=== PATIENT | male | born 1955 | race Caucasian/White ===

== ENCOUNTER 2022-12-30 10:30 | Emergency (ER) | payer MEDICARE, SELFPAY ==
[2022-12-30 10:46] VITALS: BP 149/108; PULSE 78; RESP 18; TEMP 36.8; O2SAT 93; BMI 37.2
--- NOTE | 2022-12-30 11:02 | ED_ITS ---
HPI - Animal Bite General: Chief Complaint: Animal Bite Stated Complaint: multi wasp sting Time Seen by Provider: 12/30/22 11:02 History of Present Illness: Mr. Thacker is a 67-year-old gentleman with history of hypertension, hyperlipidemia, obesity presenting the emergency department for multiple wasp or yellowjacket stings. He reports that he was doing yard work when all of a sudd en he was swarmed. He has numerous bites all over his back stomach and arms. He tried to run away and felt quite lightheaded. Currently feels mildly improved but still not normal. Denies GI symptoms, shortness of breath, throat tightness. Denies known history of allergy to insect bite. No other specific changes in health, exacerbating, or alleviating factors identified. Onset (ago): minute(s) Animal: other Mechanism: bite Pain description: burning Associated symptoms: Reports other Review of Systems General: Reports: 10 or more systems reviewed and unremarkable except in HPI and below PFSH ED PFSH: Medical History Hyperlipidemia Hypertension Physical Exam Const: COMMON NORMALS: alert GENERAL APPEARANCE: cooperative and well developed HENMT: COMMON NORMALS: normocephalic and atraumatic HEAD & SCALP: n ormocephalic and atraumatic THROAT: posterior oropharynx normal Eye: COMMON NORMALS: conjunctivae normal CONJUNCTIVA: Yes conjunctivae normal SCLERA: sclerae normal Neck/C-Spine: COMMON NORMALS: supple GENERAL: Yes trachea midline Resp: COMMON NORMALS: clear to auscultation bilaterally EFFORT & INSPECTION: Yes able to speak in complete sentences AUSCULTATION: clear to auscultation bilaterally Cardio: COMMON NORMALS: regular rate and regular rhythm RATE: regular rate RHYTHM: regular rhythm GI: COMMON NORMALS: Soft to palpation PALPATION: Yes Soft to palpation and No Tenderness to palpation present (GI) Extremity: GENERAL: Yes normal exam except as noted and No edema Neuro: COMMON NORMALS: moves all extremities SENSORIUM/ORIENTATION: Yes alert and No Orientation impaired Skin: NARRATIVE SKIN EXAM: Numerous scattered erythematous mildly raised skin lesions consistent with in sect bites. No hives or wheals appreciated. Course Vital Signs: Vital signs: Vital Signs Temperature 98.2 F 12/30/22 10:46 Pulse Rate 78 12/30/22 10:46 Respiratory Rate 18 12/30/22 10:46 Blood Pressure 149/108 12/30/22 10:46 Pulse Oximetry 93 12/30/22 10:46 Oxygen Delivery Me thod Room Air 12/30/22 10:46 MDM - Animal Bite Medical Decision Making 67-year-old gentleman presenting with multiple insect stings. Exam as above. No evidence of anaphylaxis. He does note generalized symptoms including presyncopal feeling with this and therefore laboratory studies and EKG obtained. EKG demonstrates sinus rhythm with normal axis. Right bundle branch block. No STEMI. No significant hematologic abnormalities or metabolic abnormalities. Treated with Benadryl, Pepcid, steroids, Toradol, fluids, other analgesia. Im proved on serial reexamination without evidence of allergic reaction progression. The results of ED evaluation were discussed with the patient including prescriptions and/or symptomatic cares (if applicable) including appropriate and responsible use, followup plan, and return precautions. The patient verbalized understanding and felt safe for discharge. Medical Records I reviewed the patient's medical records. Lab Data I reviewed the patient's lab results. 12/30/22 11:21 12/30/22 11:21 Laboratory Results WBC 6.4 10^3/uL (4.0-10.0) 12/30/22 11:21 RBC 5.04 10^6/uL (4.1-5.3) 12/30/22 11:21 Hgb 15.2 g/dL (11.7-16.6) 12/30/22 11:21 Hct 46.3 % (42.0-52.0) 12/30/22 11:21 MCV 91.9 fl (80-94) 12/30/22 11:21 MCH 30.2 pg (28.0-34.0) 12/30/22 11:21 MCHC 32.8 g/dL (30.0-36.0) 12/30/22 11:21 RDW 13.4 % (12.1-15.1) 12/30/22 11:21 Plt Count 309 10^3/cmm (130-400) 12/30/22 11:21 MPV 10.1 fL (7.4-10.4) 12/30/22 11:21 Neut % (Auto) 64.5 % 12/30/22 11:21 Lymph % (Auto) 23.2 % 12/30/22 11:21 Hall % (Auto) 9.4 % 12/30/22 11:21 Eos % (Auto) 1.9 % 12/30/22 11:21 Baso % (Auto) 0.8 % 12/30/22 11:21 Neut # (Auto) 4.13 10^3/uL (1.8-7.7) 12/30/22 11:21 Lymph # (Auto) 1.5 10^3/uL (0.8-4.8) 12/30/22 11:21 Hall # (Auto) 0.6 10^3/uL (0.2-0.9) 12/30/22 11:21 Eos # (Auto) 0.1 10^3/uL (0.0-0.8) 12/30/22 11:21 Baso # (Auto) 0.1 10^3/uL (0.0-0.1) 12/30/22 11:21 Nucleated RBC % (auto) 0 % 12/30/22 11:21 Nucleated RBCs # 0.0 /100WBC 12/30/22 11:21 Sodium 137 mmol/L (136-145) 12/30/22 11:21 Potassium 4.1 mmol/L (3.5-5.1) 12/30/22 11:21 Chloride 100 mmol/L (98-107) 12/30/22 11:21 Carbon Dioxide 23 mmol/L (22-29) 12/30/22 11:21 Anion Gap 18.1 (5-19) 12/30/22 11:21 BUN 16 mg/dL (8-23) 12/30/22 11:21 Creatinine 0.9 mg/dL (0.7-1.2) 12/30/22 11:21 GFR Calculation 84.2 mL/min (90-130) L 12/30/22 11:21 Glucose 95 mg/dL (65-115) 12/30/22 11:21 Calculated Osmolality 285 mOsm/kg (285-295) 12/30/22 11:21 Calcium 9.1 mg/dL (8.5-10.5) 12/30/22 11:21 Discharge Plan Discharge Patient Disposition: Home Clinical Impression: Insect bites and stings Condition: Stable Prescriptions: New oxycodone 5 mg tablet 5 mg PO Q4H PRN (Reason: pain) Qty: 10 0RF Discharge Orders: Discharge ED (Routine); Ordered 12/30/22 Ordered By: Rafat Carlisle Referrals: Eduin Rivera MD [Primary Care Provider] - Discharge Diet: Usual diet Discharge Activity: Resume usual activity Patient Instructions: Insect Bite or Sting (ED), Opioid Safety Activity Restrictions/Additional Instructions: Thank you for visiting the emergency department. You were seen and evaluated for multiple insect bites. I do not see evidence of true allergic reaction however you likely had a reaction given the number of bites/stings. I will prescribe steroids and Pepcid. For additional itching or burning/redness you may use Benadryl as directed on the packaging. You may use iizh-vax-dyylocw medications such as acetaminophen and ibuprofen for pain however please do not exceed the daily recommended dosage as listed on the packaging and please keep in mind that many namebrand medications contain the same active ingredients. Please avoid these medications if previously instructed to do so by another physician due to other underlying medical condition. Follow-up with a primary care provider, establish with a primary care provider if you do not currently see one. Return for signs of infection, shortness of breath, throat tightness, lightheadedness, nausea vomiting diarrhea, or anything else that you are concerned about and feel needs emergency department evaluation. Coding Level of Care Code ED Continuous Dryout Operator for Cora Domínguez
[2022-12-30] MEDS: diphenhydrAMINE 50 mg/mL SDV 1mL 25 MG IVP (11:24)
[2022-12-30] MEDS: famotidine 20 mg/2 mL INJ 40 MG IVP (11:24)
[2022-12-30] MEDS: methylPREDNISolone sod succ 125 MG in water for injection-sterile 2 ML 24 MG IVP (11:25)
[2022-12-30] MEDS: sodium chloride 0.9% 1,000 ML 999 ML IV (11:25)
--- NOTE | 2022-12-30 11:25 | ECG_ITS ---
[facility] Test Date: 2022-12-30 Pat Name: Cory Thacker Department: Room: Gender: Male Specialty Therapist: : 1955 Requested By: Rafat Carlisle Order Number: [id number] Zainab MD: Marcus Pearson M.D. Measurements Intervals [place] Rate: 75 P: 7 TN: 128 QRS: -21 QRSD: 132 T: 31 QT: 382 QTc: 427 Interpretive Statements SINUS RHYTHM BORDERLINE LEFT AXIS DEVIATION [QRS AXIS < -20] RIGHT BUNDLE BRANCH BLOCK [120+ ms QRS DURATION, UPRIGHT V1, 40+ ms S IN I/aVL/V4/V5/V6] POSSIBLE LEFT VENTRICULAR HYPERTROPHY [VOLTAGE CRITERIA PLUS LAE OR QRS WIDENING] Compared to ECG 01/31/2019 20:08:46 No significant changes Electronically Signed On 12-30-2022 19:52:06 CDT by Marcus Pearson M.D. [id number]
[2022-12-30 11:43] LABS: Basophils # 0.1 10^3/uL (0.0-0.1); Basophils % 0.8 %; Eosinophils # 0.1 10^3/uL (0.0-0.8); Eosinophils % 1.9 %; Hematocrit 46.3 % (42.0-52.0); Hemoglobin 15.2 g/dL (11.7-16.6); Lymphocytes # 1.5 10^3/uL (0.8-4.8); Lymphocytes % 23.2 %; Mean Corpuscular HGB Conc 32.8 g/dL (30.0-36.0); Mean Corpuscular Hemoglobin 30.2 pg (28.0-34.0); Mean Corpuscular Volume 91.9 fl (80-94); Mean Platelet Volume 10.1 fL (7.4-10.4); Monocytes # 0.6 10^3/uL (0.2-0.9); Monocytes % 9.4 %; Neutrophils # 4.13 10^3/uL (1.8-7.7); Neutrophils % 64.5 %; Nucleated Red Blood Cells % 0 %; Platelet Count 309 10^3/cmm (130-400); Red Blood Count 5.04 10^6/uL (4.1-5.3); Red Cell Distribution Width 13.4 % (12.1-15.1); White Blood Count 6.4 10^3/uL (4.0-10.0)
[2022-12-30] MEDS: ketorolac 30 mg/mL INJ 15 MG IVP (12:06)
[2022-12-30] MEDS: oxyCODONE 5 mg IR Tab/Cap PO (12:06)
[2022-12-30 12:07] LABS: Anion Gap 18.1 (5-19); Blood Urea Nitrogen 16 mg/dL (8-23); Calcium 9.1 mg/dL (8.5-10.5); Carbon Dioxide 23 mmol/L (22-29); Chloride 100 mmol/L (98-107); Glomerular Filtration Rate 84.2 mL/min (90-130); Glucose 95 mg/dL (65-115); Osmolality Calculated 285 mOsm/kg (285-295); Potassium 4.1 mmol/L (3.5-5.1); Sodium 137 mmol/L (136-145)
== END 2022-12-30 12:21 | disposition home or self-care (01) ==
PROVIDERS: Emergency Provider Emergency Medicine; PCP Family Medicine
DX: T63.441A Toxic effect of venom of bees, accidental (unintentional), initial encounter (principal)
CPT/HCPCS: 80048; 85025; 93005; 96361; 96374; 96375; 99284; J1200; J1885; J2930; J3490; J7030

== ENCOUNTER 2024-12-12 10:08 | Emergency (ER) | payer MEDICARE, MEDICAID, SELFPAY ==
--- OUTSIDE RECORDS SUMMARY | 2005-02-13 10:35 | XMS_ITS | Continuity of Care Document ---
Author Organization [facility] Address [address] [place] [address] [place] [address] Phone Care Team Providers Care Facilities Plant Engineer Name Role Phone Gopi Ortiz MD Unavailable Unavailable Procedures Procedure Date Postop followup visit Advance Directives Directive Yes / No Effective Date File Name No Information Encounters Encounter Description Practice Location Reason(s) For Visit Diagnoses Date Provider Providers Copied on Encounter [facility], [address], [place], [address], [place] tel:[phone] [facility] No Information 0-200 5 Angel Nguyễn. [address], [place], [address], [place]. tel: [phone] Referring Provider: Gopi Ortiz, [address], [place], [address]. tel:[phone] Family History Family Member Type Diagnosis Age At Onset No Information Payers Payer name Insurance type Covered democrat ID Authoriza tion(s) No Information Social History Type Description Quantity Date Captured Comments Sex Male Smoking Status No Information Chief Complaint And Reason For Visit No Information Reason For Referral Reason For Referral No Information History Of Present Illness Encounter Date Complaint History Of Prese nt Illness No Information Functional Status Date Functional Assessmen t No Information Instructions Date Instruction Additional Infor mation No Information Assessments Type Assessment Date No Information Patient Care Teams Name Effective Dates (start - stop) Status Members No Information
[2024-12-12 10:14] VITALS: BP 155/83; PULSE 100; RESP 18; TEMP 37; O2SAT 93; BMI 42.2
--- NOTE | 2024-12-12 10:15 | XRR_ITS ---
PROCEDURE INFORMATION: Exam: XR Chest Exam date and time: 12/12/2024 11:22 AM Age: 69 years old Clinical indication: Cough and dyspnea; Additional info: Dyspnea/cough TECHNIQUE: Imaging protocol: Radiologic exam of the chest. Views: 1 view. COMPARISON: CT abdomen pelvis w con* [id number] 01/31/2019 8:24 PM FINDINGS: Lungs: Unremarkable. No consolidation. Pleural spaces: Unremarkable. No pleural effusion. No pneumothorax. Heart/Mediastinum: Unremarkable. No cardiomegaly. Bones/joints: Unremarkable. XR/XR chest 1V portable [id number] IMPRESSION: No acute findings.
--- NOTE | 2024-12-12 10:24 | ECG_ITS ---
[facility] Test Date: 2024-12-12 Pat Name: Cory Thacker Department: Room: Gender: Male [employer] Captain: : 1955 Requested By: Solitario Salvador Order Number: [id number] Zainab MD: Marcus Pearson M.D. Measurements Intervals [place] Rate: 93 P: 18 MI: 128 QRS: -27 QRSD: 126 T: 34 QT: 325 QTc: 404 Interpretive Statements SINUS RHYTHM BORDERLINE LEFT AXIS DEVIATION [QRS AXIS < -20] RIGHT BUNDLE BRANCH BLOCK [120+ ms QRS DURATION, UPRIGHT V1, 40+ ms S IN I/aVL/V4/V5/V6] MODERATE VOLTAGE CRITERIA FOR LVH, CONSIDER NORMAL VARIANT [MEETS CRITERIA IN ONE OF: R(aVL), S(V1), R(V5), R(V5/V6)+S(V1)] Compared to ECG 12/30/2022 11:25:28 No significant changes Electronically Signed On 12-12-2024 14:05:01 CDT by Marcus Pearson M.D. [id number]
--- OUTSIDE RECORDS SUMMARY | 2024-12-12 10:27 | XMS_ITS | Data Portability ---
Author Organization [facility] Oniel Woods [facility], [place], [facility] Address [address] [facility] [address] [place] [address] Care Team Providers Care Transition Of Care Specialist Name Role Phone HILDA RIVERA Primary Care Provider [phone] Assessment Encounter Date Assessment Date Assessment LastModified by Organization Details LastModified Time 07/24/2024 07/24/2024 he is going to get some compression stockings he got rid of his others. [email or web address] Not available 07/24/2024 14:49:11 08/20/2024 08/20/2024 supportive care if any breathing difficulty or worsening f/u right away for evaluation. [email or web address] Not available 08/20/2024 08:22:09 Plan of Treatment Reminders Order Date Submit Date Provider Last Modified By Organization Details Last Modified Time Details Appointments COLONOSCO PY CONSULT 2024 02:40P M Mike Sun MD Not available Not available Not available Lab rapid strep group A, throat [address] [facility]), [address] [place] [address], [phone], 08/20/2024 08:29:59 SARS CoV 2 RNA, QL, nasophary nx 2024 025 [facility] ([facility]), [address] [place] [address], [phone], 08/20/2024 08:29:46 Referral None recorded. Procedures colonosco py procedure (PROC) 2024 025 [facility], [address], [place], [address], 12/08/2024 14:57:10 Surgeries None recorded. Imaging None recorded. Medication Orders hydrochlo rothiazid e 25 mg tablet 2024 025 [facility], [address], [place], [address], 07/24/2024 14:50:04 Patient TargetsNo targets recorded. Patient InstructionsNo instructions recorded. Reason for Referral None Reported. Results Created Date Observation Date Name Description Value Unit Range Abnormal Flag Note LastModifiedBy Organization Detail LastModifiedTime 06/26/1906/26/2024 CBC WBC 7.0 x10 4.5-10 .5 Not Available [facility] [address] [facility], [place], [address], 06/26/2024 12:06:38 06/26/1906/26/2024 CBC RBC 4.75 x10 4.30-5 .90 Not Available [facility] [address] [facility] 1, [place], [address], 06/26/2024 12:06:38 06/26/19 25 06/26/2024 CBC HGB 15.6 g/dL 13.5-1 8.0 Not Available [facility] [address] [facility] 1, [place], [address], 06/26/2024 12:06:38 06/26/1906/26/2024 CBC HCT 43.5 % 35.0-6 0.0 Not Available [facility] [address] [facility], [place], [address], 06/26/2024 12:06:38 06/26/1906/26/2024 CBC MCV 91.6 fL 80.0-9 9.9 Not Available [facility] [address] [facility] 1, [place], [address], 06/26/2024 12:06:38 06/26/19 25 06/26/2024 CBC MCH 32.8 pg 27.0-3 2.0 high Not Available [facility] [address] [facility] 1, [place], [address], 06/26/2024 12:06:38 06/26/1906/26/2024 CBC MCHC 35.8 g/dL 32.0-3 6.0 Not Available [facility] [address] [facility], [place], [address], 06/26/2024 12:06:38 06/26/1906/26/2024 CBC RDW 13.8 % 11.5-1 4.5 Not Available [facility] [address] [facility], [place], [address], 06/26/2024 12:06:38 06/26/1906/26/2024 CBC plt 274.7 x10 150.0- 451.0 Not Available [facility] [address] [facility] 1, [place], [address], 06/26/2024 12:06:38 06/26/19 25 06/26/2024 CBC lymphocytes % 20.8 % 20.0-5 0.0 Not Available [facility] [address] [facility] 1, [place], [address], 06/26/2024 12:06:38 06/26/1906/26/2024 CBC granulcytes % 67.9 % 30.0-7 0.0 Not Available [facility] [address] [facility] 1, [place], [address], 06/26/2024 12:06:38 06/26/1906/26/2024 CBC monocytes % 9.2 % 2.0-16 .0 Not Available [facility] [address] [facility] 1, [place], [address], 06/26/2024 12:06:38 06/26/19 25 06/26/2024 CBC granulcytes# 4.7 x10 Not [facility] [address] [facility] 1, [place], [address], 06/26/2024 12:06:38 06/26/19 25 06/26/2024 CBC lymphocytes # 1.5 x10 Not Available [place] [facility] [address] [facility], [place], [address], 06/26/2024 12:06:38 06/26/19 25 06/26/2024 CBC monocytes # 0.6 x10 Not Avai [facility] [address] [facility] 1, [place], [address], 06/26/2024 12:06:38 06/26/19 25 06/26/2024 URINA LYSIS WITH MICRO color YELLOW Not Available [facility] [address] [facility] 1, [place], [address], 06/26/2024 12:48:56 06/26/19 25 06/26/2024 URINA LYSIS WITH MICRO clarity CLEAR Not Available [facility] [address] [facility] 1, [place], [address], 06/26/2024 12:48:56 06/26/19 25 06/26/2024 URINA LYSIS WITH MICRO glu NEGATI VE Not Available [facility] [address] [facility] 1, [place], [address], 06/26/2024 12:48:56 06/26/19 25 06/26/2024 URINA LYSIS WITH MICRO bili NEGATI VE Not Available [facility] [address] [facility] 1, [place], [address], 06/26/2024 12:48:56 06/26/19 25 06/26/2024 URINA LYSIS WITH MICRO ket 1+ Not Available [facility] [address], [place], [address], 06/26/2024 12:48:56 06/26/19 25 06/26/2024 URINA LYSIS WITH MICRO S.g 1.020 1.005- 1.025 Not Available [facility] [address], [place], [address], 06/26/2024 12:48:56 06/26/19 25 06/26/2024 URINA LYSIS WITH MICRO pH 7.0 5.0-7. 0 Not Available [facility] [address] [facility] 1, [place], [address], 06/26/2024 12:48:56 06/26/19 25 06/26/2024 URINA LYSIS WITH MICRO pro NEGATI VE Not Available [facility] [address] [facility] 1, [place], [address], 06/26/2024 12:48:56 06/26/19 25 06/26/2024 URINA LYSIS WITH MICRO uro 0.2 E.U./D L Not Available [facility] [address], [place], [address], 06/26/2024 12:48:56 06/26/19 25 06/26/2024 URINA LYSIS WITH MICRO nit NEGATI VE Not Available [facility] [address] [facility] 1, [place], [address], 06/26/2024 12:48:56 06/26/19 25 06/26/2024 URINA LYSIS WITH MICRO blo NEGATI VE Not Available [facility] [address], [place], [address], 06/26/2024 12:48:56 06/26/19 25 06/26/2024 URINA LYSIS WITH MICRO olga NEGATI VE Not Available [facility] [address] [facility] [address], [place], [address], 06/26/2024 12:48:56 06/26/19 25 06/26/2024 URINA LYSIS WITH MICRO WBC 0-1 Not Available [facility] [address] [facility], [place], [address], 06/26/2024 12:48:56 06/26/19 25 06/26/2024 URINA LYSIS WITH MICRO RBC NEGATI VE Not Available [facility] [address] [facility] 1, [place], [address], 06/26/2024 12:48:56 06/26/19 25 06/26/2024 URINA LYSIS WITH MICRO epi cells NEGATI VE Not Available [facility] [address] [facility] [address], [place], [address], 06/26/2024 12:48:56 06/26/19 25 06/26/2024 URINA LYSIS WITH MICRO bacteria NEGATI VE Not Available [facility] [address] [facility] 1, [place], [address], 06/26/2024 12:48:56 06/26/19 25 06/26/2024 URINA LYSIS WITH MICRO other NG Not Available [facility] [address] [facility] [address], [place], [address], 06/26/2024 12:48:56 06/26/19 25 06/26/2024 TSH TSH 2.26 uIU/m L 0.49-3 .82 Not Available [facility] [address] [facility], [place], [address], 06/26/2024 14:15:32 06/26/19 25 06/26/2024 CMP (MALE ) glucose 106.0 mg/dL 60.0-9 9.0 high Not Available [facility] [address] [facility] 1, [place], [address], 06/26/2024 14:15:38 06/26/19 25 06/26/2024 CMP (MALE ) BUN (blood urea nitrogen) 17.0 mg/dL 10.0-2 6.0 Not Available [facility] [address] [facility] 1, [place], [address], 06/26/2024 14:15:38 06/26/19 25 06/26/2024 CMP (MALE ) creatinine (serum) 0.9 mg/dL 0.4-1. 5 Not Available [facility] [address] [address], [place], [address], 06/26/2024 14:15:38 06/26/19 25 06/26/2024 CMP (MALE ) BUN/creatini ne ratio 18.89 ratio Not Available [facility] [address] [address], [place], [address], 06/26/2024 14:15:38 06/26/19 25 06/26/2024 CMP (MALE ) eGFR calculated 89.2 Not Available [facility] [address] [address], [place], [address], 06/26/2024 14:15:38 06/26/19 25 06/26/2024 CMP (MALE ) total protein 8.3 g/dL 6.0-8. 5 Not Available [facility] [address] [address], [place], [address], 06/26/2024 14:15:38 06/26/19 25 06/26/2024 CMP (MALE ) total bilirubin 1.1 mg/dL 0.2-1. 3 Not Available [facility] [address] [facility] 1, [place], [address], 06/26/2024 14:15:38 06/26/19 25 06/26/2024 CMP (MALE ) albumin 4.7 g/dL 3.5-5. 5 Not Available [facility] [address] [facility] 1, [place], [address], 06/26/2024 14:15:38 06/26/19 25 06/26/2024 CMP (MALE ) globulin 3.6 calc Not Available [facility] [address] [facility] 1, [place], [address], 06/26/2024 14:15:38 06/26/19 25 06/26/2024 CMP (MALE ) AST (SGOT) 23.0 U/L 0.0-46 .0 Not Available [facility] [address] [facility] 1, [place], [address], 06/26/2024 14:15:38 06/26/19 25 06/26/2024 CMP (MALE ) altv (SGPT) 26.0 U/L 13.0-6 9.0 normal Not Available [facility] [address] [address], [place], [address], 06/26/2024 14:15:38 06/26/19 25 06/26/2024 CMP (MALE ) A/G ratio 1.3 ratio Not Available [facility] [address] [facility] 1, [place], [address], 06/26/2024 14:15:38 06/26/19 25 06/26/2024 CMP (MALE ) ALP phos 71.0 U/L 30.0-1 40.0 normal Not Available [facility] [address] [address], [place], [address], 06/26/2024 14:15:38 06/26/19 25 06/26/2024 CMP (MALE ) calcium 9.6 mg/dL 8.4-10 .5 Not Available [facility] [address] [facility] 1, [place], [address], 06/26/2024 14:15:38 06/26/19 25 06/26/2024 CMP (MALE ) sodium 134.0 mmol/ L 136.0- 145.0 low Not Available [facility] [address] [facility] 1, [place], [address], 06/26/2024 14:15:38 06/26/19 25 06/26/2024 CMP (MALE ) potassium 4.4 mmol/ L 3.5-5. 1 Not Available [facility] [address] [facility] 1, [place], [address], 06/26/2024 14:15:38 06/26/19 25 06/26/2024 CMP (MALE ) chloride 101.0 mmol/ L 98.0-1 10.0 normal Not Available [facility] [address] [facility] 1, [place], [address], 06/26/2024 14:15:38 06/26/19 25 06/26/2024 CMP (MALE ) C02 24.0 mmol/ L 22.0-3 1.0 Not Available [facility] [address] [facility] 1, [place], [address], 06/26/2024 14:15:38 06/26/19 25 06/26/2024 CMP (MALE ) anion gap 9.0 calc Not Available [facility] [address] [facility] 1, [place], [address], 06/26/2024 14:15:38 06/26/19 25 06/26/2024 CMP (MALE ) osmolality 279.0 calc Not Available [facility] [address] [facility] [address], [place], [address], 06/26/2024 14:15:38 08/21/19 25 08/20/2024 SARS CoV 2 RNA, QL, nasop haryn x COVID negati ve Not Available [facility] ([facility]) [address] [place], [address], 08/20/2024 08:13:10 08/21/19 25 08/20/2024 rapid strep group A, throa t Strep negati ve Not Available [facility] ([facility]) [address] [place], [address], 08/20/2024 08:13:00 06/30/19 25 06/30/2024 US, izzyle x, janel s, lower extre mity No observ ation record ed. [address] [place], [address], 07/02/2024 15:10:01 Result Notes None recorded. Problems Name Problem SNOMED Code Status Onset Date Resolution Date Notes Provider Name and Address Organization Details Recorded Time Hyperlipi demia 60853233 Active 2022 OLGA chatman [facility] 4 08:05:02 History of diverticu litis 186051296622 100 Completed 202208/24/2024 Afsaneh chatman, [facility] 5 23:30:21 Essential hypertens ion 39639435 Active 2022 OLGA chatman [facility] 3 09:25:03 Edema of lower extremity 984562822 Active 2024 OLGA chatman [facility] 5 14:05:38 Throat irritatio n 020231003 Active 2024 Afsaneh Myles [facility], MichelleLDuyCDuy 23:30:40 Problem Notes None recorded. Procedures Surgical History Date Name Laterality Status Provider Name and Address Organization Details Recorded Time 12/05/19 25 Cryo Lesion-#1 completed Hilda Rivera MD [address] [place] [address], [phone], [facility], [place] 12/04/2024 09:12:46 12/05/19 25 Cryo Lesions #2-14 completed Hilda Rivera MD [address] [place] [address], [phone], [facility], [place] 12/04/2024 09:12:12 appendectomy completed Afsaneh Myles [facility], [place] 08/24/2024 23:30:55 removal of pilonidal cyst completed [facility], LDuyL.CDuy 01/04/2023 09:27:58 complete repair of rotator cuff completed [facility], MichelleLDuyCDuy 01/04/2023 09:28:41 total knee replacement completed [facility], MichelleLDuyCDuy 01/04/2023 09:28:57 Imaging Results None recorded. Procedure Notes None recorded. Medical Equipment None Reported. Allergies Allergen ID Allergen Name Allergen Category Reaction Reaction Severity Criticality Documentation Date Start Date Code Code System Note Provider Name and Address Organization Details Recorded Time 32617 Product containin g 3-hydroxy -3-methyl glutaryl- coenzyme A reductase inhibitor (product) medicatio n myalgias (muscle pain) Not available Not available 12/22/2022 19048 009 [facility]ED [facility] 08:04:43 39869 erythromy annie medicatio n Not available Not available Not available 12/22/2022 4053 RxNorm OLGA chatman [facility], [place] 4 08:04:47 Medications Name Sig Start Date Stop Date Status Note LastModified by Organization Details LastModified Time amoxicill in 500 mg capsule TAKE 1 CAPSULE BY MOUTH THREE TIMES DAILY FOR 5 DAYS 01/04 completed Not Available Not Available Not Available cetirizin e 10 mg tablet Take 1 tablet twice a day by oral route. 04/29 completed Not Available Not Available Not Available lisinopri l 20 mg tablet TAKE 1 TABLET BY MOUTH ONCE DAILY active Not Available Not Available No t Available famotidin e 40 mg tablet 08/19 completed Not Available Not Available Not Available prednison e 20 mg tablet TAKE 2 TABLETS BY MOUTH ONCE DAILY 01/04 completed Not Available Not Available Not Available fluoroura cil 5 % topical cream daily 08/20 completed 436; Recorded 03/14/20 20 2:16PM by Masha Talbert (Authori rick through Hilda Rivera MD), Office Visit; Refill Quantity : 1; Applicat or; Not Available Not Available Not Available amlodipin e 2.5 mg tablet Take 1 tablet by mouth once daily 07/24 completed Not Available Not Available Not Available sulfameth oxazole 800 mg-trimet hoprim 160 mg tablet TAKE 1 TABLET BY MOUTH EVERY 12 HOURS FOR 5 DAYS 03/24 completed Not Available Not Available Not Available aspirin 81 mg tablet,de layed release Take 1 tablet every day by oral route. active Not Available Not Available No t Available triamcino lone acetonide 0.1 % topical cream APPLY A THIN LAYER TO THE AFFECTED AREAS (WASP STINGS) BY TOPICAL ROUTE 3 TIMES PER DAY PRN ITCHING/ SWELLING 04/29 completed Not Available Not Available Not Available Nexium 20 mg capsule,d elayed release Take 1 capsule every day by oral route. active Not Available Not Available No t Available hydrocodo ne 7.5 mg-acetam inophen 325 mg tablet TAKE 1 TABLET BY MOUTH EVERY 4 HOURS NEEDED FOR PAIN 01/04 completed Not Available Not Available Not Available lisinopri l 10 mg tablet Take 1 tablet by mouth once daily 09/21 completed Not Available Not Available Not Available prednison e 50 mg tablet 04/29 completed Not Available Not Available Not Available hydrochlo rothiazid e 25 mg tablet TAKE 1 TABLET BY MOUTH ONCE DAILY active Not Available Not Available No t Available mupirocin 2 % topical ointment APPLY OINTMENT TOPICALL Y TO AFFECTED AREA TWICE DAILY 03/24 completed Not Available Not Available Not Available furosemid e 20 mg tablet TAKE 1 TABLET BY MOUTH ONCE DAILY FOR 5 DAYS 07/24 completed Not Available Not Available Not Available amoxicill in 875 mg-potass ium clavulana te 125 mg tablet 01/04 completed Not Available Not Available Not Available oxycodone 5 mg tablet 04/29 completed Not Available Not Available Not Available ezetimibe 10 mg tablet TAKE 1 TABLET BY MOUTH ONCE DAILY active Not Available Not Available No t Available magnesium active Not Available Not Flory ilable Not Available ascorbic acid (vitamin C) daily 04/18 completed 0; Recorded 07/30/19 1:02PM by Alex Owens, Office Visit; Not Available Not Available Not Available Vitamin C active Not Available Not Flory ilable Not Available saw palmetto at bedtime 04/18 completed Recorded 07/30/19 1:02PM by Alex Owens, Office Visit; Refill Quantity : 30; Capsule; Not Available Not Available Not Available Vitamin B-12 daily 04/18 completed 0; Recorded 07/30/19 1:02PM by Alex Owens, Office Visit; Not Available Not Available Not Available amoxicill in three times daily x 5 days 01/04 completed Recorded 07/30/19 1:02PM by Alex Owens, Office Visit; Refill Quantity : 0; Not Available Not Available Not Available Aspirin EC daily 01/04 completed 0; Recorded 07/30/19 1:02PM by Alex Owens, Office Visit; Not Available Not Available Not Available Vitamin D3 1 daily 04/18 completed Not Available Not Available Not Available Nexium 08/19 completed Not Available Not Available Not Available Hydrocodo ne W/Acetami nophen four times daily 01/04 completed Recorded 03/05/20 23 2:30PM by Hilda Rivera MD, Annotati on/Adden dum; Refill Quantity : 0; Not Available Not Available Not Available saw bryanm wernershamarkareemm in-AA-FA active Not Available Not Available Not Available amlodipin e besylate (bulk) daily 01/04 completed 436; Recorded 10/10/19 5:08PM by Olga Acevedo LPN (Authori rick through Hilda Rivera MD), Refill Request; Refill Quantity : 100; Tablet; Not Available Not Available Not Available Vitals Date Recorded Body height Body mass index (BMI) Body weight Body temperature Heart rate Oxygen saturation Oxygen saturation in Arterial blood by Pulse oximetry Systolic And Diastolic Provider Name and Address Organization Details Last Updated DateTime 5 185.42 cm 42.9 kg/m2 171990. 52 g 98.4 [degF] 89 /min 98 % 98 % 138/62 mm[Hg] OLGA ACEVEDO [facility] 5 14:09:26 Date Recorded Body height Body mass index (BMI) Body weight Body temperature Heart rate Oxygen saturation Oxygen saturation in Arterial blood by Pulse oximetry Systolic And Diastolic Provider Name and Address Organization Details Last Updated DateTime 5 185.42 cm 43 kg/m2 881769. 11 g 100.2 [degF] 81 /min 95 % 95 % 124/76 mm[Hg] Afsaneh Myles [facility] 5 08:08:42 Date Recorded Body height Body mass index (BMI) Body weight Body temperature Oxygen saturation Oxygen saturation in Arterial blood by Pulse oximetry Heart rate Systolic And Diastolic Provider Name and Address Organization Details Last Updated DateTime 5 185.42 cm 43.1 kg/m2 720357. 7 g 98.1 [degF] 95 % 95 % 89 /min 120/78 mm[Hg] MAYE SALMON [facility] 5 08:37:34 Social History Question Answer Notes LastModified by Organizat ion Details LastModified Time Tobacco Smoking Status Former Smoker OLGA chatman [facility] 01/04/2023 09:26:55 When Did You Quit Smoking? 16+yearssinc elastcisheri alvarado [email or web address] Information not available 01/04/2023 What Was The Date Of Your Most Recent Tobacco Screening? 12/04/2024 [email or web address] Information not available 12/04/2024 What Is Your Current Pack Years? 10packyears [email or web address] Information not available 01/04/2023 Sex: Unknown Functional Status Question Answer Note LastModified by Organizat ion Details LastModified Time Do you use any illicit or recreational drugs? No [email or web address] Information not available 01/04/2023 Do you or have you ever used any other forms of tobacco or nicotine? No [email or web address] Information not available 08/20/2023 What is your level of alcohol consumption? Occasional [email or web address] Information not available 01/04/2023 Mental Status None recorded. Family History Relationship Description Onset Age of this Age Resolved Age Notes LastModified by Organization Details LastModified Time Mother Cerebrovascu lar accident [email or web address] Not available 09:25:44 Medical History No medical history recorded. Immunizations Vaccine Type Date Status Note Provider Nam e and Address Organization Details Recorded Time COVID-19, mRNA, LNP-S, PF, 30 mcg/0.3 mL dose 1 completed OLGA chatman [facility] 01/04/2023 09:20:46 COVID-19, mRNA, LNP-S, PF, 30 mcg/0.3 mL dose 1 completed OLGA chatman [facility] 01/04/2023 09:20:46 Tdap 0 completed Not Available [facility] 04/29/2023 08:55:05 Influenza, split virus, trivalent, preservative 1 completed Not Available [facility] 04/29/2023 08:55:05 Influenza, high-dose, quadrivalent, PF 2 completed OLGA chatman [facility] 01/04/2023 09:20:46 Influenza, adjuvanted, quadrivalent, PF 1 completed OLGA ACEVEDO null, [facility] 01/04/2023 09:20:46 Pneumococcal conjugate PCV20, polysaccharide [id number] conjugate, adjuvant, PF 3 completed OLGA ACEVEDO null, [facility] 01/04/2023 09:20:46 zoster recombinant 3 completed OLGA ACEVEDO null, [facility] 06/26/2024 11:14:29 Influenza, high-dose, quadrivalent, PF 3 completed OLGA ACEVEDO null, [facility] 06/26/2024 11:14:29 zoster recombinant 4 completed OLGA ACEVEDO null, [facility] 07/24/2024 14:05:16 Influenza, high-dose, trivalent, PF 5 completed OLGA ACEVEDO null, [facility] 07/24/2024 14:05:16 Past Encounters Encounter ID Performer Location Encounter Start Date Encounter Closed Date Diagnosis/Indication Diagnosis SNOMED-CT Code Diagnosis ICD10 Code Diagnosis Note [id number] EUGENIA RIVERO [facility] ([facility]) [address] [place] [phone] 01/01/2023 16:37:52 01/09/2023 07:24:24 Wasp sting 802024870 T63.461A was seen in ER on Saturday (12/30/22) for swarm of wasp stings . [id number] Hilda Rivera MD [facility] ([facility]) [address] [place] [phone] 01/04/2023 08:44:45 01/04/2023 10:22:53 Wasp sting 781249230 T63.461A [id number] Hilda Rivera MD [facility] ([facility]) [address] [place] [phone] 04/29/2023 08:54:24 04/29/2023 11:40:42 Body mass index 40+ - severely obese 316497537 Z68.41 Hyperlipidemia 17076306 E78.5 Essential hypertension 12238761 I10 Administra tion of influenza vaccine 91319057 Z23 declines covid vaccine Hyperglycemia 87161927 R 73.9 [id number] Hilda Rivera MD [facility] ([facility]) [address] [place], [place] [address] 08/13/2023 08:02:48 08/14/2023 11:25:15 Essential hypertension 00687278 I10 Hyperlipidemia 60503614 E78.5 Screening for cancer 158 16153 Z12.5 Hyperglycemia 83356566 R 73.9 [id number] Hilda Rivera MD [facility] ([facility]) [address] [place] [address] 5 08/20/2023 08:02:27 08/20/2023 12:06:03 Essential hypertension 42320782 I10 Hyperlipidemia 05440839 E78.5 Body mass index 40+ - severely obese 112247161 Z68.41 Hyperglycemia 25194145 R 73.9 Multiple a ctinic keratoses 693772190 L57.0 [id number] EUGENIA JOSHUA [facility] ([facility]) [address] [place] [address] 5 09/22/2023 14:08:21 09/22/2023 14:42:58 Cellulitis of right lower limb [id number] L03.333 [id number] Hilda Rivera MD [facility] ([facility]) [address] [place] [phone] 5 02/10/2024 12:52:50 02/10/2024 16:50:29 Exposure to SARS-CoV-2 [id number] Z20.813 [id number] Hilda Rivera MD [facility] ([facility]) [address] [place], [place] [phone] 03/23/2024 08:03:02 03/23/2024 14:43:17 Essential hypertension [id number] I10 Hyperglycemia 52445429 R 73.9 [id number] Hilda Rivera MD [facility] ([facility]) [address] [place] [phone] 5 03/24/2024 08:00:54 03/24/2024 08:58:29 Essential hypertension 99784806 I10 Hyperlipidemia 00515960 E78.5 [id number] NOE COPEELIZABETH [facility] ([facility]) [address] [place] [phone] 5 04/11/2024 11:33:22 04/14/2024 09:44:52 Cough 96619716 R05.9 Headache 81416390 R51.9 [id number] EUGENIA JOSHUA [facility] ([facility]) [address] [place] [phone] 5 04/18/2024 09:06:52 04/18/2024 10:38:50 Cough [id number] R05.9 Acute uppe r respiratory infection 69930422 J06.9 May use OTC meds as needed for symptoms. [id number] Hilda Rivera MD [facility] ([facility]) [address] [place] [phone] 5 06/26/2024 11:08:45 06/26/2024 13:34:44 Essential hypertension 68215173 I10 Hyperlipidemia 55782043 E78.5 Body mass index 40+ - severely obese 498512074 Z68.41 Edema of l ower extremity 751327404 R60.0 Pain in le ft lower limb 931466984 M79.605 Pain in limb 88040560 M7 9.604 M79.396 [id number] Hilda Rivera MD [facility] ([facility]) [address] [place] [phone] 5 06/30/2024 09:06:04 07/01/2024 14:28:24 [id number] Hilda Rivera MD [facility] ([facility]) [address] [place] [phone] 5 07/24/2024 13:34:02 07/28/2024 15:37:15 Edema of lower extremity 116153251 R60.0 d/c amlodipine will replace with hctz [id number] Hilda Rivera MD [facility] ([facility]) [address] [place] [address] 08/20/2024 07:59:44 08/20/2024 15:33:15 Throat irritation 910867416 R07.0 Acute pharyngitis 792879 003 J02.9 Acute uppe r respiratory infection 52107495 J06.9 [id number] Hilda Rivera MD [facility] ([facility]) [address] [place] [address] 12/04/2024 08:33:13 12/04/2024 10:53:39 Skin lesion 03342289 L98.9 Screening for malignant neoplasm of colon 517623354 Z12.11 last colonoscop y unsure date but at least 10 years Health Concerns Section Related Observation LastModified by Organization Detai ls LastModified Time None Recorded Concern Status LastModified by Organization Details LastModified Time None Recorded Advance Directives Directive None Recorded Payers Insurance Date Sequence Insurance Name Policy Number Policy Hirsch Covered Member ID Hirsch Member ID Guarantor Name 12/03/2024 1 [id number]/ [place]VANTAGE - PPO) [id number] Cory Thacker [id number] Cory Thacker 02/10/2024 1 [employer] (MEDICARE REPLACEMENT/ ADVANTAGE - HMO) Cory Thacker [id number] Cory Thacker Notes Date Note Type Note Provider Name and Address Organization Details Recorded Time 07/24/2024 text/html EdemaReported bypatient.Location:LLE Quality:legs do not swell equally Duration:intermittent Onset/Timing:started 1 months ago Context:no prior history of edema; no prior history of deep vein thrombosisNotes:Patien t denies any injury to cause the swelling. There is no redness or pain. Edema will get worse throughout the day and will be better by morning after having his foot elevated throughout the night. Pt states that the furosemide took care of his swelling, but did cause him to have to urinate all day long. He states that he finished those a couple of weeks ago and the swelling stayed gone until a couple of days ago. Patient is watching his sodium intake as well. His u/s was negative for DVT. He has also started [place] 3 because he was told it could help out with his swelling. I have never felt so good these last few months as I have been feeling. he reports his swelling is a lot better than it was before. when he lays down at night it resolves by morning. He is going to get a [employer]. sx's present for 6 weeks and moderately improved. he ahs tried to cut back on sodium but really he is still eating processed foods as it is difficult for him to find foods that are low in sodium. yesterday he had a chicken salad from [employer]. I looked it up and that is 1700mg of sodium.he just ate at [employer] restaurant. I gave him the handout 30 foods that are high in sodium and what to eat instead. Hilda Rivera MD [address] [place] [address], [phone], [facility] 07/24/2024 14:50:21 08/20/2024 text/html Upper Respirator y SymptomsReported bypatient.Notes:Pt has had a scratchy throat for 2 days. His voice is hoarse as well. He does also have a cough and chest congestion. No GI symptoms. He has not felt feverish, but has a temp of 100.2 today. Pt would like a covid and strep test before he visits his grandson, as he has cystic fibrosis. i advised him that whatever the reason whether a testable or untestable infection, he has an infection. This infection is contagious and will be easy to transmit to your grandson. It will pose a threat to him no matter the type of infection. He understands this. We discussed avoiding contact wit his grandson until after the contagious period passes and then using precautions as discussed. He will put off his visit for at least 10 days Hilda Rivera MD [address] [place] [address], [phone], [facility] 08/20/2024 08:22:20 12/04/2024 text/html Skin LesionRepor marni bypatient.Location:ear Quality:painful Severity:unchanged Timing:gradual Associated Symptoms:no fever Hilda Rivera MD [address] [place] [address], [phone], [facility] [place] [facility] 12/04/2024 09:13:16
--- NOTE | 2024-12-12 10:43 | W.ED.ABDPA2 ---
HPI - Abdominal Pain General: Chief Complaint: Abdominal Pain Stated Complaint: abd pain Time Seen by Provider: 12/12/24 10:15 History of Present Illness: 69-year-old male presents emergency room complaint of left lower quadrant abdominal pain for the last 2 to 3 days. He has had intermittent loose stools he has not had any hematochezia or melena. He has had problems in the past with diverticulitis. He denies any dysuria urgency or frequency or hematuria. No fever sweats or chills. He has never had a colonoscopy but does have one scheduled next month Associated Symptoms: Denies chills, dysuria and fever(s) Related Data Previous Rx's ?Medication ?Instructions ?Recorded oxycodone 5 mg tablet 5 mg PO Q4H PRN pain #10 tabs 12/30/22 amoxicillin 875 mg-potassium 1 tab PO BID #20 tabs 12/12/24 clavulanate 125 mg tablet Allergies Allergy/AdvReac Type Severity Reaction Status Date / Time erythromycin base (From Allergy ALGY-Rash Verified 12/12/24 10:19 Erythrocin) Review of Systems Const: Denies: fever(s) or chills Card: Denies: chest pain Resp: Denies: dyspnea GI: Denies: abdominal pain : Denies: dysuria, urinary frequency or urinary urgency Musc: Denies: neck pain or back pain Skin/Breast: Denies: rash PFSH ED PFSH: Medical History Hyperlipidemia Hypertension Physical Exam Const: GENERAL APPEARANCE: cooperative ORIENTATION/CONSCIOUSNESS: Yes awake, Yes oriented to person, Yes oriented to place and Yes oriented to time HENMT: COMMON NORMALS: normocephalic, atraumatic and hearing grossly normal bilaterally HEAD & SCALP: normocephalic and atraumatic Resp: COMMON NORMALS: normal respiratory effort, No retractions, No use of accessory muscles and clear to auscultation bilaterally AUSCULTATION: clear to auscultation bilaterally Cardio: COMMON NORMALS: regular rate, regular rhythm and No murmurs present (Cardio) RATE: regular rate RHYTHM: regular rhythm GI: COMMON NORMALS: No hepatosplenomegaly present AUSCULTATION: Yes normoactive bowel sounds PALPATION: Yes Tenderness to palpation present (GI) Details: LLQ, No Guarding due to palpation present (GI) and Yes No hepatosplenomegaly present Extremity: COMMON NORMALS: normal to inspection, capillary refill normal, no clubbing, cyanosis or edema, no calf tenderness and no pedal edema Neuro: SENSORIUM/ORIENTATION: Yes oriented to person, Yes oriented to place and Yes oriented to time Skin: COMMON NORMALS: no rashes or lesions noted GENERAL SKIN EXAM: no rashes or lesions noted Course Vital Signs: Vital signs: Vital Signs Temperature 98.6 F 12/12/24 10:14 Pulse Rate 91 12/12/24 11:56 Respiratory Rate 18 12/12/24 10:14 Blood Pressure 118/72 12/12/24 11:56 Pulse Oximetry 95 12/12/24 11:56 Oxygen Delivery Me thod Room Air 12/12/24 10:14 MDM - Abdominal Pain Medical Decision Making No leukocytosis. Based on physical exam patient likely has diverticulitis will treat with oral antibiotics. Gave diet recommendations follow-up with primary care return with worsening symptoms Medical Records I reviewed the patient's medical records. Lab Data I reviewed the patient's lab results. 12/12/24 10:48 12/12/24 10:48 Labs/Radiology: Radiology Impressions Chest X-Ray 12/12/24 10:15 IMPRESSION: No acute findings. Laboratory Results WBC 9.93 10^3/uL (3.29-11.43) 12/12/24 10:48 RBC 4.27 10^6/uL (3.85-5.65) 12/12/24 10:48 Hgb 13.10 g/dL (11.27-16.99) 12/12/24 10:48 Hct 39.7 % (37-53) 12/12/24 10:48 MCV 93.0 fl (82-101) 12/12/24 10:48 MCH 30.7 pg (27-33) 12/12/24 10:48 MCHC 33.0 g/dL (30-55) 12/12/24 10:48 RDW 12.9 % (12.1-15.1) 12/12/24 10:48 Plt Count 278 10^3/cmm (157-399) 12/12/24 10:48 MPV 9.6 fL (7.4-10.4) 12/12/24 10:48 Neut % (Auto) 73.3 % 12/12/24 10:48 Lymph % (Auto) 11.8 % 12/12/24 10:48 [place] % (Auto) 13.4 % 12/12/24 10:48 Eos % (Auto) 0.7 % 12/12/24 10:48 Baso % (Auto) 0.5 % 12/12/24 10:48 Neut # (Auto) 7.28 10^3/uL (1.8-7.7) 12/12/24 10:48 Lymph # (Auto) 1.2 10^3/uL (0.8-4.8) 12/12/24 10:48 [place] # (Auto) 1.3 10^3/uL (0.2-0.9) H 12/12/24 10:48 Eos # (Auto) 0.1 10^3/uL (0.0-0.8) 12/12/24 10:48 Baso # (Auto) 0.1 10^3/uL (0.0-0.1) 12/12/24 10:48 Nucleated RBC % (auto) 0 % 12/12/24 10:48 Nucleated RBCs # 0.0 /100WBC 12/12/24 10:48 Sodium 134 mmol/L (136-145) L 12/12/24 10:48 Potassium 4.0 mmol/L (3.5-5.1) 12/12/24 10:48 Chloride 97 mmol/L (98-107) L 12/12/24 10:48 Carbon Dioxide 22 mmol/L (22-29) 12/12/24 10:48 Anion Gap 19.0 (5-19) 12/12/24 10:48 BUN 17 mg/dL (8-23) 12/12/24 10:48 Creatinine 1.0 mg/dL (0.7-1.2) 12/12/24 10:48 GFR Calculation 74.1 mL/min (90-130) L 12/12/24 10:48 Glucose 97 mg/dL (65-115) 12/12/24 10:48 Calculated Osmolality 279 mOsm/kg (285-295) L 12/12/24 10:48 Calcium 9.3 mg/dL (8.5-10.5) 12/12/24 10:48 Total Bilirubin 1.0 mg/dL (0.15-1.2) 12/12/24 10:48 AST 13 U/L (0-40) 12/12/24 10:48 ALT 17 U/L (0-41) 12/12/24 10:48 Alkaline Phosphatase 60 U/L (40-130) 12/12/24 10:48 Total Protein 6.9 g/dL (6.6-8.7) 12/12/24 10:48 Albumin 3.9 g/dL (3.5-5.2) 12/12/24 10:48 Globulin 3.0 g/dL (1.3-4.6) 12/12/24 10:48 Lipase 23 U/L (13-60) 12/12/24 10:48 Urine Color Yellow (Yellow) 12/12/24 11:15 Urine Appearance Cloudy (CLEAR) A 12/12/24 11:15 Urine pH 6.0 (5-7) 12/12/24 11:15 Ur Specific Burns 1.020 (1.005-1.030) 12/12/24 11:15 Urine Protein Negative (Negative) 12/12/24 11:15 Urine Glucose (UA) Negative (Normal) 12/12/24 11:15 Urine Ketones Trace (Negative) 12/12/24 11:15 Urine Blood Negative (Negative) 12/12/24 11:15 Urine Nitrate Negative (Negative) 12/12/24 11:15 Urine Bilirubin Negative (Negative) 12/12/24 11:15 Urine Urobilinogen 1.0 mg/dL (Negative) 12/12/24 11:15 Ur Leukocyte Esterase Trace (Negative) A 12/12/24 11:15 Urine RBC 0-2 /hpf (0-2) 12/12/24 11:15 Urine WBC 0-5 /hpf (0-5) 12/12/24 11:15 Ur Squamous Epith Cells 0-5 /hpf (0-5) 12/12/24 11:15 Amorphous Sediment Not Reportable 12/12/24 11:15 Urine Bacteria None seen /hpf (NONE) 12/12/24 11:15 Hyaline Casts 0-4 /lpf H 12/12/24 11:15 No radiology studies performed this visit Discharge Plan Discharge Patient Disposition: Home Clinical Impression: Diverticulitis Condition: Stable Prescriptions: New amoxicillin-pot clavulanate 875-125 mg tablet 1 tab PO BID Qty: 20 0RF No Action oxycodone 5 mg tablet 5 mg PO Q4H PRN (Reason: pain) Qty: 10 0RF Discharge Orders: Discharge ED (Routine); Ordered 12/12/24 Ordered By: Solitario Barrett Referrals: dEuin Rivera MD [Primary Care Provider, Family Practice] Discharge Diet: Usual diet Discharge Activity: Increase activity as tolerated Patient Instructions: Diverticulitis (ED), Diverticulitis Diet (ED), Opioid Safety, Pain Management, Patient Portal & Mile Instructions Activity Restrictions/Additional Instructions: [facility]. It is very important that you follow up as instructed or that you return to the Emergency Department should you have concerns or if your condition changes or worsens in any way. You were seen in the emergency room and left lower quadrant pain your exam was consistent with diverticulitis white count is not significantly elevated. Will start you on oral antibiotics follow-up with your primary care doctor if not improving Print Language: Vietnamese Coding Level of Care Code ED Landscaper Helper for Cora Domínguez
[2024-12-12 11:07] LABS: Hematocrit 39.7 % (37-53); Hemoglobin 13.10 g/dL (11.27-16.99); Mean Corpuscular HGB Conc 33.0 g/dL (30-55); Mean Corpuscular Hemoglobin 30.7 pg (27-33); Mean Corpuscular Volume 93.0 fl (82-101); Nucleated Red Blood Cells % 0 %; Platelet Count 278 10^3/cmm (157-399); Red Blood Count 4.27 10^6/uL (3.85-5.65); White Blood Count 9.93 10^3/uL (3.29-11.43)
[2024-12-12 11:21] LABS: Glucose Urine UA Negative (Normal); Nitrate Urine Negative (Negative); Specific Gravity, Urine 1.020 (1.005-1.030)
[2024-12-12 11:23] LABS: Add Urine Microscopic? YES
[2024-12-12 11:26] LABS: Alanine Aminotransferase 17 U/L (0-41); Albumin Level 3.9 g/dL (3.5-5.2); Alkaline Phosphatase 60 U/L (40-130); Anion Gap 19.0 (5-19); Aspartate Amino Transferase 13 U/L (0-40); Blood Urea Nitrogen 17 mg/dL (8-23); Calcium 9.3 mg/dL (8.5-10.5); Carbon Dioxide 22 mmol/L (22-29); Chloride 97 mmol/L (98-107); Creatinine Clr Calc Pharmacy 107.4987; Globulin 3.0 g/dL (1.3-4.6); Glucose 97 mg/dL (65-115); Lipase 23 U/L (13-60); Osmolality Calculated 279 mOsm/kg (285-295); Potassium 4.0 mmol/L (3.5-5.1); Sodium 134 mmol/L (136-145); Total Protein 6.9 g/dL (6.6-8.7)
[2024-12-12 11:31] VITALS: BP 118/72; PULSE 83; O2SAT 94
[2024-12-12 11:56] VITALS: BP 118/72; PULSE 91; O2SAT 95
== END 2024-12-12 12:04 | disposition home or self-care (01) ==
PROVIDERS: Emergency Provider Family Medicine; PCP Family Medicine
DX: K57.92 Diverticulitis of intestine, part unspecified, without perforation or abscess without bleeding (principal); E78.5 Hyperlipidemia, unspecified; I10 Essential (primary) hypertension; R10.32 Left lower quadrant pain; Z88.1 Allergy status to other antibiotic agents
CPT/HCPCS: 36415; 71045; 80053; 81001; 83690; 85025; 93005; 99285